=== PATIENT | male | born 1980 | race Caucasian/White ===

== ENCOUNTER 2018-06-18 17:17 | Inpatient (IN) | payer OTHER ==
[~2018-06-18] VITALS: Ht 182.9 cm; Wt 93.9 kg
[2018-06-18 17:45] VITALS: BP 143/92
[2018-06-18] MEDS ORDERED: ESCI5TAB PO (17:53)
[2018-06-18] MEDS ORDERED: CYAN100020 SL (17:53)
[2018-06-18] MEDS ORDERED: MELO-105 PO (17:53)
[2018-06-18] MEDS ORDERED: CLONIDINE HCL 0.1 MG TABLET PO PRN (18:15)
[2018-06-18] MEDS ORDERED: DIAZEPAM 10 MG TABLET PO PRN ×2 (18:15)
[2018-06-18] MEDS ORDERED: LORAZEPAM 2 MG/1 ML VIAL IM PRN (18:15)
[2018-06-18] MEDS ORDERED: THIAMINE HCL 200 MG/2 ML VIAL IM ONE (18:15)
[2018-06-18] MEDS ORDERED: MELOXICAM 7.5 MG TABLET PO PRN (18:15)
[2018-06-18] MEDS ORDERED: diphenhydrAMINE 50 MG CAPSULE PO PRN (18:15)
[2018-06-18] MEDS ORDERED: ONDANSETRON 4 MG/2 ML VIAL IM PRN (18:15)
[2018-06-18] MEDS ORDERED: DIAZEPAM 5 MG TABLET PO PRN (18:15)
[2018-06-18] MEDS ORDERED: ONDANSETRON ODT 4 MG TAB.RAPDIS SL PRN (18:15)
[2018-06-18] MEDS ORDERED: 4 DAY TAPER VALIUM-SERENITY PROTOCOL PO PRN (18:15)
[2018-06-18] MEDS ORDERED: MAG HYDROX/AL HYDROX/SIMETH 30 ML LIQUID UDC PO PRN (18:15)
[2018-06-18] MEDS ORDERED: HYDROXYZINE PAMOATE 25 MG CAPSULE PO PRN (18:15)
[2018-06-18] MEDS ORDERED: MAGNESIUM HYDROXIDE 30 ML LIQUID UDC PO PRN (18:15)
[2018-06-18] MEDS ORDERED: LOPERAMIDE HCL 2 MG CAPSULE PO PRN ×2 (18:15)
[2018-06-18 19:20] LABS: BASOPHILS # (AUTO) 0.1 K/uL (0.0-8.0); BASOPHILS % (AUTO) 0.7 % (0.0-2.0); EOSINOPHILS # (AUTO) 0.3 K/uL (0.0-0.7); EOSINOPHILS % (AUTO) 3.8 % (0.0-7.0); HEMOGLOBIN 15.3 g/dL (12.5-16.3); LYMPHOCYTES # (AUTO) 2.9 K/uL (20.0-40.0); LYMPHOCYTES % (AUTO) 37.6 % (20.5-51.5); MEAN CORPUSCULAR HEMOGLOBIN 30.8 uug (23.8-33.4); MEAN CORPUSCULAR HGB CONC 34 g/dL (32.5-36.3); MEAN CORPUSCULAR VOLUME 90.4 fL (73.0-96.2); MONOCYTES # (AUTO) 0.7 K/uL (2.0-10.0); MONOCYTES % (AUTO) 9.4 % (0.0-11.0); NEUTROPHILS # (AUTO) 3.8 K/uL (1.8-8.9); NEUTROPHILS % (AUTO) 48.5 % (38.5-71.5); PLATELET COUNT (AUTO) 250 K/uL (152-348); RED BLOOD CELL COUNT(AUTO) 4.98 MIL/uL (4.06-5.63); WHITE BLOOD COUNT (AUTO) 7.8 K/uL (3.6-10.2)
[2018-06-18 19:35] LABS: ETHANOL < 3 MG/DL (0-0)
[2018-06-18 19:50] LABS: ALANINE AMINOTRANSFERASE 61 U/L (16-63); ALKALINE PHOSPHATASE 65 U/L (50-136); AMYLASE 49 U/L (25-115); ASPARTATE AMINOTRANSFERASE 46 U/L (15-37); BILIRUBIN,TOTAL 0.6 mg/dL (0.2-1.0); CARBON DIOXIDE 32 mmol/L (21-32); CHLORIDE 100 mmol/L (98-107); CREATININE 1.4 mg/dL (0.6-1.3); GLUCOSE 98 mg/dL (74-106); LIPASE 221 U/L (73-393); MAGNESIUM 1.9 mg/dL (1.8-2.4); POTASSIUM 3.7 mmol/L (3.5-5.1); UREA NITROGEN, BLOOD 15 mg/dL (7-18)
[2018-06-18 20:00] VITALS: BP 130/85
[2018-06-18 20:06] LABS: THYROID STIMULATING HORMONE 2.154 mIU/mL (0.358-3.740)
[2018-06-18 20:48] LABS: *AMPHETAMINE, URINE NEGATIVE (NEGATIVE); *BARBITURATE, URINE NEGATIVE (NEGATIVE); *CANNABINOID, URINE NEGATIVE (NEGATIVE); *COCCAINE, URINE NEGATIVE (NEGATIVE); *OPIATE, URINE NEGATIVE (NEGATIVE); *PHENCYCLIDINE SCREEN,URINE NEGATIVE (NEGATIVE)
[2018-06-19] VITALS: BP 118/79
[2018-06-19 04:00] VITALS: BP 116/82
[2018-06-19 08:00] VITALS: BP 127/79
[2018-06-19] MEDS ORDERED: TUBERCULIN,PURIF.PROT.DERIV. 5 TU/0.1 ML TEST ID ONE (09:00)
[2018-06-19] MEDS: FOLIC ACID 1 MG TABLET PO SCH (09:31)
[2018-06-19] MEDS: MULTIVITAMINS,THERAPEUTIC TABLET PO SCH (09:31)
[2018-06-19] MEDS: THIAMINE HCL 100 MG TABLET PO SCH (09:31)
[2018-06-19] MEDS ORDERED: OXYMETAZOLINE NASAL 0.05% 15 ML SPRAY NS PRN (10:30)
[2018-06-19] MEDS ORDERED: BENZOCAINE/MENTH/CETYLPYRD LOZENGE MM PRN (10:30)
[2018-06-19 12:00] VITALS: BP 154/90
[2018-06-19 16:00] VITALS: BP 129/71
[2018-06-19 20:00] VITALS: BP 117/69
[2018-06-19] MEDS: DIAZEPAM 5 MG TABLET PO SCH (20:09)
[2018-06-20] VITALS: BP 119/72
[2018-06-20 04:00] VITALS: BP 128/86
[2018-06-20 06:12] LABS: HEPATITIS B SURFACE AG Negative (Negative)
[2018-06-20 08:00] VITALS: BP 132/87
[2018-06-20] MEDS: FOLIC ACID 1 MG TABLET PO SCH (08:56)
[2018-06-20] MEDS: MULTIVITAMINS,THERAPEUTIC TABLET PO SCH (08:56)
[2018-06-20] MEDS: DIAZEPAM 5 MG TABLET PO SCH (08:56)
[2018-06-20] MEDS: THIAMINE HCL 100 MG TABLET PO SCH (08:56)
[2018-06-20 12:00] VITALS: BP 130/75
[2018-06-20 16:00] VITALS: BP 137/80
[2018-06-20 20:00] VITALS: BP 136/78
[2018-06-21 07:30] VITALS: BP 135/80
[2018-06-21 08:00] VITALS: BP 135/80
[2018-06-21] MEDS: FOLIC ACID 1 MG TABLET PO SCH (09:00)
[2018-06-21] MEDS: MULTIVITAMINS,THERAPEUTIC TABLET PO SCH (09:00)
[2018-06-21] MEDS: THIAMINE HCL 100 MG TABLET PO SCH (09:12)
== END 2018-06-21 08:16 | disposition home or self-care (01) | DRG 895 ==
LOC: SRC 17:17
PROVIDERS: ADMIT Family Medicine Addiction Medicine; ATTEND Family Medicine Addiction Medicine
PROC: HZ2ZZZZ Detoxification Services for Substance Abuse Treatment (ICD-10-PCS; principal; 2018-06-18)
PROC: HZ41ZZZ Group Counseling for Substance Abuse Treatment, Behavioral (ICD-10-PCS; 2018-06-19)
DX: F10.230 Alcohol dependence with withdrawal, uncomplicated (principal); F13.230 Sedative, hypnotic or anxiolytic dependence with withdrawal, uncomplicated; Y90.9 Presence of alcohol in blood, level not specified; F17.210 Nicotine dependence, cigarettes, uncomplicated; F41.1 Generalized anxiety disorder; F32.9 Major depressive disorder, single episode, unspecified; F43.20 Adjustment disorder, unspecified
CPT/HCPCS: 36415; 70030-TC; 71045; 80307; 83690; 83735; 84443; 85025; 86580; 86592; 86705; 86803; 87340; 87806; 93005; A4663; G0480; J3411; Q0163